=== PATIENT | female | born 1945 | race Two or more races ===

== ENCOUNTER 2018-07-28 21:12 | Emergency (ER) | payer MEDICAID, OTHER ==
[2018-07-28 21:49] VITALS: RESP 18
[2018-07-28 22:20] LABS: EOS # 0.3 K/uL (0.0-0.7); EOS % 6.2 % (0.0-4.0); HEMOGLOBIN 10.1 g/dL (11.0-16.0); LYMPH # 1.4 K/uL (1.0-4.3); LYMPH % 30.6 % (20.0-40.0); MEAN CELL VOLUME 82.5 fL (81.0-99.0); MEAN CORPUSCULAR HEMOGLOBIN 26.7 pg (27.0-31.0); MEAN CORPUSCULAR HGB CONC 32.4 g/dL (33.0-37.0); MEAN PLATELET VOLUME 8.3 fL (7.2-11.7); MONO # 0.5 K/uL (0.0-0.8); MONO % 10.5 % (0.0-10.0); NEUT # 2.4 K/uL (1.8-7.0); NEUT % 51.7 % (50.0-75.0); NRBC % 0.1 % (0.0-2.0); RBC 3.77 Mil/uL (3.80-5.20); RED CELL DISTRIBUTION WIDTH 14.2 % (11.5-14.5); WHITE BLOOD COUNT 4.7 K/uL (4.8-10.8)
[2018-07-28 22:33] LABS: ALB/GLOB RATIO 1.3 (1.0-2.1); ALBUMIN 4.2 g/dL (3.5-5.0); CALCIUM 8.9 mg/dl (8.6-10.4)
--- NOTE | 2018-07-28 23:12 | C.PDOC ---
History Of Present Illness 72 year old female with PMHx of DM insulin dependent and dementia is brought to the ED by her son for evaluation. As per Son patient has increased falling and weakness. Patient is also not eating or drinking enough. History is obtained from her son, patient not answering questions. Time Seen by Provider: 07/28/18 23:11 Chief Complaint (Nursing): Weakness/Neurological Deficit History Per: Family History/Exam Limitations: clinical condition Onset/Duration Of Symptoms: Days Current Symptoms Are (Timing): Still Present Associated Symptoms Preceding Syncopal Episode: Other Fall Associated With With Symptoms: No Severity: None Recent travel outside of the [place]: No Additional History Per: Family Past Medical History Reviewed: Historical Data, Nursing Documentation, Vital Signs Vital Signs: Last Vital Signs Temp 98.0 F 07/28/18 21:42 Pulse 74 07/28/18 21:42 Resp 18 07/28/18 21:42 BP 111/45 L 07/28/18 21:42 Pulse Ox 97 07/28/18 21:42 - Medical History PMH: CHF, Dementia, Diabetes, HTN Surgical History: Pacemaker Family History: States: Unknown Family Hx - Social History Hx Alcohol Use: No Hx Substance Use: No - Immunization History Hx Tetanus Toxoid Vaccination: No Hx Influenza Vaccination: No Hx Pneumococcal Vaccination: No Review Of Systems Review Of Systems: ROS cannot be obtained secondary to pt's inabilty to answer questions. Physical Exam - Physical Exam Appears: Non-toxic, No Acute Distress Skin: Warm, Dry Head: Normacephalic Eye(s): bilateral: Normal Inspection Oral Mucosa: Dry Neck: Supple Chest: Symmetrical, Other (CABG scar, pacemaker left side) Cardiovascular: Rhythm Regular Respiratory: No Rales, No Rhonchi, No Wheezing Gastrointestinal/Abdominal: Soft, No Tenderness, No Guarding, No Rebound Extremity: Bilateral: Atraumatic, Normal Color And Temperature, Normal ROM Neurological/Psych: Other (dementia, patient not answering questions) Gait: Steady ED Course And Treatment - Laboratory Results Result Diagrams: 07/28/18 22:16 07/28/18 22:16 ECG: Interpreted By Me, Viewed By Me ECG Rhythm: Sinus Rhythm (75), Nonspecific Changes O2 Sat by Pulse Oximetry: 97 (On RA) Pulse Ox Interpretation: Normal - Radiology CXR: Interpreted by Me, Viewed By Me - CT Scan/US CT head Other Rad Studies (CT/US): Read By Radiologist, Radiology Report Reviewed CT/US Interpretation: EXAM: CT Head without Intravenous Contrast. CLINICAL HISTORY: Dizziness. TECHNIQUE: Axial computed tomography images of the head/brain without intravenous contrast. 0.00 mGy-cm. COMPARISON: None provided. FINDINGS: BRAIN. Chronic periventricular and subcortical microvascular disease is seen. VENTRICLES: There is generalized parenchymal atrophy noted as demonstrated by symmetrical dilatation of ventricles and sulci. ORBITS: The orbits are unremarkable. SINUSES AND MASTOIDS: Bilateral ethmoid and maxillary sinusitis. The mastoid air cells are clear. BONES: No fracture. SOFT TISSUES: Unremarkable. MISCELLANEOUS: No acute intracranial pathology. IMPRESSION: 1. There is generalized parenchymal atrophy noted as demonstrated by symmetrical dilatation of ventricles and sulci. 2. Chronic periventricular and subcortical microvascular disease is seen. 3. Bilateral ethmoid and maxillary sinusitis. 4. No acute intracranial pathology. . Electronically signed on Jul 28, 2018 11:51:59 PM EST by: Shay Stewart M.D., [place] Certified By [employer] & [employer]. Fellowship Trained MRI and CT Specialist. son states that he wants to take his mother home. Understands that he assumes responsability for her well being, and he agrees. WIll also return if symptoms recur Progress Note: Plan: - CT head. - EKG. - Labs. - CXR Disposition Discussed With .: Johnny Ch Doctor Will See Patient In The: Office Counseled Patient/Family Regarding: Studies Performed, Diagnosis, Need For Followup - Disposition Referrals: Johnny Ch MD [Staff Provider] - Disposition: HOME/ ROUTINE Disposition Time: 23:12 Condition: FAIR Additional Instructions: Please return if symptoms recur Instructions: Preventing Falls in the Older Adult, Dementia (DC) Forms: [employer] (Urdu) - POA Present On Arrival: Poor Glycemic Control - Clinical Impression Clinical Impression: Dementia, Ambulatory dysfunction, Frequent falls - Scribe Statement The provider has reviewed the documentation as recorded by the Scribe Gm Chavez All medical record entries made by the Scribe were at my direction and personally dictated by me. I have reviewed the chart and agree that the record accurately reflects my personal performance of the history, physical exam, medic al decision making, and the department course for this patient. I have also personally directed, reviewed, and agree with the discharge instructions and disposition. Decision To Admit - Pt Status Changed To: Hospital Disposition Of: Inpatient - Admit Certification Admit to Inpatient:: After my assessment, the patient will require hospitalization for at least two midnights. This is because of the severity of symptoms shown, intensity of services needed, and/or the medical risk in this patient being treated as an outpatient. - InPatient: Physician Admission Certification: I certify that this patient requires 2 or more midnights of care for the following reason:: After my assessment, the patient will require hospitalization for at least two midnights. This is because of the severity of symptoms shown, intensity of services needed, and/or the medical risk in this patient being treated as an outpatient. - . Bed Request Type: Regular Admitting Physician: Johnny Ch Patient Diagnosis: Dizziness, Dementia, Ambulatory dysfunction, Frequent falls
[2018-07-28 23:55] LABS: INR 1.1; PROTHROMBIN TIME 11.8 SECONDS (9.7-12.2)
[2018-07-29 00:10] LABS: TROPONIN I 0.013 ng/mL (0.00-0.120)
[2018-07-29 02:08] VITALS: BP 110/58; PULSE 75; TEMP 97.9; O2SAT 95
--- NOTE | 2018-07-29 08:49 | RAD ---
HISTORY: chest pain COMPARISON: None available. TECHNIQUE: Chest, one view. FINDINGS: LUNGS: Biapical pleural thickening. No focal consolidation. Please note that chest x-ray has limited sensitivity for the detection of pulmonary masses. PLEURA: No significant pleural effusion identified. No definite pneumothorax . CARDIOVASCULAR: Median sternotomy wires with evidence of CABG. Heart size appears top normal. Single lead left-sided AICD. OSSEOUS STRUCTURES: Degenerative changes. Osseous demineralization. VISUALIZED UPPER ABDOMEN: Unremarkable. OTHER FINDINGS: None. IMPRESSION: Median sternotomy wires with evidence of CABG. Heart size appears top normal. Single lead left-sided AICD. Mild biapical pleural thickening. No focal consolidation.
--- NOTE | 2018-07-29 10:51 | CT ---
Date of service: 07/28/2018 PROCEDURE: CT HEAD WITHOUT CONTRAST. HISTORY: dizziness COMPARISON: None available. TECHNIQUE: Axial computed tomography images were obtained through the head/brain without intravenous contrast. Radiation dose: Total exam DLP = 938.13 mGy-cm. This CT exam was performed using one or more of the following dose reduction techniques: Automated exposure control, adjustment of the mA and/or kV according to patient size, and/or use of iterative reconstruction technique. FINDINGS: HEMORRHAGE: No intracranial hemorrhage. BRAIN: Diffuse atrophy with prominence of the ventricles and sulci noted. No mass effect or edema. Intracranial atherosclerosis. Scattered periventricular and subcortical white matter hypodensities, which are nonspecific, but often seen with chronic microvascular ischemic disease. Please note that MRI with diffusion imaging is more sensitive in the detection of acute ischemic event. VENTRICLES: No hydrocephalus. CALVARIUM: Unremarkable. PARANASAL SINUSES: Mucosal thickening of the ethmoid air cells and maxillary sinuses. Partial opacification of the left sphenoid sinus. MASTOID AIR CELLS: Unremarkable as visualized. No inflammatory changes. OTHER FINDINGS: Partial opacification of the external auditory canals, likely cerumen. IMPRESSION: Generalized atrophy. Nonspecific white matter changes. Mucosal thickening of the ethmoid air cells and maxillary sinuses. Partial opacification of the left sphenoid sinus. Correlate for sinusitis. Preliminary impression was provided by Sincerely.
--- NOTE | 2018-07-31 12:20 | CARD ---
APPROVED REPORT Date of service: 07/28/2018 EKG Measurement Heart [id number] <Conclusion> Sinus rhythm with sinus arrhythmia with 1st degree AV block Cannot rule out Anterior infarct, age undetermined ST & T wave abnormality, consider lateral ischemia Abnormal ECG
== END 2018-07-29 02:15 | disposition home or self-care (01) ==
LOC: C.ER 21:12
DX: R42 Dizziness and giddiness (principal); F03.90 Unspecified dementia, unspecified severity, without behavioral disturbance, psychotic disturbance, mood disturbance, and anxiety; R26.2 Difficulty in walking, not elsewhere classified; R29.6 Repeated falls; E11.9 Type 2 diabetes mellitus without complications; I50.9 Heart failure, unspecified; I10 Essential (primary) hypertension